=== PATIENT | female | born 1935 | race Caucasian/White ===

== ENCOUNTER 2017-04-20 15:55 | Emergency (ER) | payer MEDICARE, BC ==
[2017-04-20] MEDS ORDERED: Sodium Chloride 0.9% 10 ML Syringe FLUSH PRN (16:06)
[2017-04-20] MEDS ORDERED: Labetalol 20 MG/4 ML Syringe ONE (16:50)
[2017-04-20 16:54] LABS: CHLORIDE,CL 107 mmol/L (98-107); SODIUM,NA 142 mmol/L (136-145)
[2017-04-20] MEDS ORDERED: Labetalol 20 MG/4 ML Syringe IVPUSH ONE (17:28)
[2017-04-20] MEDS ORDERED: Aspirin 81 MG Tab.Chew PO ONE (17:28)
[2017-04-20] MEDS ORDERED: Nitroglycerin 2% Oint 1 GM UD Packet TOP ONE (17:35)
--- NOTE | 2017-04-20 17:47 | EDM.PDOC ---
ED HPI GENERAL MEDICAL PROBLEM - General Chief Complaint: Neuro Symptoms/Deficits Stated Complaint: Can't Find Words Time Seen by Provider: 04/20/17 16:04 Source of Information: Reports: Patient, Family History Limitations: Reports: No Limitations - History of Present Illness INITIAL COMMENTS - FREE TEXT/NARRATIVE: Patient brought in via her with complaints of dysphagia and dysarthria as well as some right sided weakness and left temporal headache. She was seen with similar symptoms on Saturday at [facility] in [place]. A full workup for TIA was performed, with no positive results. Discharge assessment included TIA vs Migraine. She does have a long standing history of migraine headaches. She states she has not had any in 20 years with the exception of possibly last week. No chest pain, SOB, LOC, no nausea, vomiting, fever, chills. Assisted with transfer from the wheelchair to bed. Onset: Today Location: Reports: Upper Extremity, Right, Lower Extremity, Right Associated Symptoms: Reports: Other (difficulty with words) - Related Data Allergies Allergy/AdvReac Type Severity Reaction Status Date / Time No Known Allergies Allergy Verified 04/20/17 16:30 ED ROS GENERAL - Review of Systems Review Of Systems: See Below Constitutional: Reports: No Symptoms HEENT: Reports: No Symptoms Respiratory: Reports: No Symptoms Cardiovascular: Reports: No Symptoms Endocrine: Reports: No Symptoms GI/Abdominal: Reports: No Symptoms : Reports: No Symptoms Musculoskeletal: Reports: No Symptoms Skin: Reports: No Symptoms Neurological: Reports: Headache, Trouble Speaking, Weakness Psychiatric: Reports: No Symptoms Hematologic/Lymphatic: Reports: No Symptoms Immunologic: Reports: No Symptoms ED EXAM, NEURO - Physical Exam Exam: See Below Exam Limited By: Physical Impairment (difficult speech. dysphasic, dysarthria) General Appearance: Alert, WD/WN, No Apparent Distress Eye Exam: Bilateral Eye: EOMI, PERRL Ears: Hearing Grossly Normal, Normal TMs Throat/Mouth: Normal Inspection, Normal Oropharynx Neck: Normal Inspection Respiratory/Chest: No Respiratory Distress, Lungs Clear, Normal Breath Sounds, No Accessory Muscle Use, Chest Non-Tender Cardiovascular: Normal Peripheral Pulses, Regular Rate, Rhythm GI/Abdominal: Normal Bowel Sounds, Soft, Non-Tender Neurological: Alert, Normal Mood/Affect, Normal Dorsiflexion, Normal Plantar Flexion, Oriented x 3 Extremities: Normal Inspection, Normal Capillary Refill, Other (right sided arm and leg weakness) Psychiatric: Normal Affect, Normal Mood Skin Exam: Warm, Dry, Intact Course - Orders/Labs/Meds Orders: Active Orders 24 hr Category Date Time Status EKG Documentation Completion [RC] DAILY Care 04/20/17 16:06 Active Head wo Cont [CT] Stat Exams 04/20/17 16:06 Taken Sodium Chloride 0.9% [Saline Flush] Med 04/20/17 16:06 Active 10 ml FLUSH ASDIRECTED PRN Saline Lock Insert [OM.PC] Routine Oth 04/20/17 16:06 Ordered Medication Orders Sodium Chloride (Saline Flush) 10 ml FLUSH ASDIRECTED PRN PRN Reason: Keep Vein Open Labs: Laboratory Tests 04/20/17 04/20/17 04/20/17 Range/Units 16:15 16:18 16:18 WBC 6.4 (4.0-10.0) x10^3/uL RBC 4.51 (4.00-5.50) x10^6/uL Hgb 12.1 (12.0-16.0) g/dL Hct 36.0 (33.0-47.0) % MCV 79.8 (78.0-93.0) fL MCH 26.8 (26.0-32.0) pg MCHC 33.6 (32.0-36.0) g/dL RDW Coeff of Terry 13.6 (10.0-15.0) % Plt Count 178 (130-400) x10^3/uL Neut % (Auto) 60.7 (50.0-80.0) % Lymph % (Auto) 28.0 (25.0-50.0) % Moody % (Auto) 8.1 (2.0-11.0) % Eos % (Auto) 3.0 (0.0-4.0) % Baso % (Auto) 0.2 (0.2-1.2) % PT 10.9 (10.0-12.8) SEC INR 1.0 L (2.0-3.5) APTT 23.4 L (24.0-36.0) SEC Sodium (136-145) mmol/L Potassium (3.5-5.1) mmol/L Chloride (98-107) mmol/L Carbon Dioxide (21-32) mmol/L BUN (7-18) mg/dL Creatinine (0.55-1.02) mg/dL Est Cr Clr Drug Dosing Estimated GFR (MDRD) Glucose (74-106) mg/dL POC Glucose 88 (74-106) mg/dL Calcium (8.5-10.1) mg/dL Corrected Calcium (8.5-10.1) mg/dL Total Bilirubin (0.2-1.0) mg/dL AST (15-37) U/L ALT (14-59) U/L Alkaline Phosphatase (46-116) U/L Creatine Kinase (26-192) U/L Creatine Kinase Index (0.0-4.0) % CK-MB (CK-2) (0.0-3.6) ng/mL POC Troponin I (0.00-0.08) ng/mL C-Reactive Protein (<=0.9) mg/dL Total Protein (6.4-8.2) g/dL Albumin (3.4-5.0) g/dL Globulin Albumin/Globulin Ratio 04/20/17 04/20/17 Range/Units 16:18 16:22 WBC (4.0-10.0) x10^3/uL RBC (4.00-5.50) x10^6/uL Hgb (12.0-16.0) g/dL Hct (33.0-47.0) % MCV (78.0-93.0) fL MCH (26.0-32.0) pg MCHC (32.0-36.0) g/dL RDW Coeff of Terry (10.0-15.0) % Plt Count (130-400) x10^3/uL Neut % (Auto) (50.0-80.0) % Lymph % (Auto) (25.0-50.0) % Moody % (Auto) (2.0-11.0) % Eos % (Auto) (0.0-4.0) % Baso % (Auto) (0.2-1.2) % PT (10.0-12.8) SEC INR (2.0-3.5) APTT (24.0-36.0) SEC Sodium 142 (136-145) mmol/L Potassium 4.2 (3.5-5.1) mmol/L Chloride 107 (98-107) mmol/L Carbon Dioxide 27 (21-32) mmol/L BUN 17 (7-18) mg/dL Creatinine 1.0 (0.55-1.02) mg/dL Est Cr Clr Drug Dosing TNP Estimated GFR (MDRD) 53 Glucose 96 (74-106) mg/dL POC Glucose (74-106) mg/dL Calcium 8.8 (8.5-10.1) mg/dL Corrected Calcium 9.12 (8.5-10.1) mg/dL Total Bilirubin 0.4 (0.2-1.0) mg/dL AST 23 (15-37) U/L ALT 26 (14-59) U/L Alkaline Phosphatase 92 (46-116) U/L Creatine Kinase 151 (26-192) U/L Creatine Kinase Index 1.3 (0.0-4.0) % CK-MB (CK-2) 2.0 (0.0-3.6) ng/mL POC Troponin I 0.00 (0.00-0.08) ng/mL C-Reactive Protein < 0.2 (<=0.9) mg/dL Total Protein 7.2 (6.4-8.2) g/dL Albumin 3.6 (3.4-5.0) g/dL Globulin 3.6 Albumin/Globulin Ratio 1.00 Meds: Medications Generic Name Dose Route Start Last Admin Trade Name Freq PRN Reason Stop Dose Admin Sodium Chloride 10 ml 04/20/17 16:06 Saline Flush FLUSH ASDIRECTED PRN Keep Vein Open Discontinued Medications Generic Name Dose Route Start Last Admin Trade Name Freq PRN Reason Stop Dose Admin Aspirin 324 mg 04/20/17 17:28 Aspirin PO 04/20/17 17:29 ONETIME ONE Labetalol HCl Confirm 04/20/17 16:50 Normodyne Administered 04/20/17 16:51 Dose 20 mg .ROUTE .STK-MED ONE Labetalol HCl 10 mg 04/20/17 17:28 Normodyne IVPUSH 04/20/17 17:29 NOW ONE Protocol Nitroglycerin 1 gm 04/20/17 17:35 Nitro-Bid 2% TOP 04/20/17 17:36 ONETIME ONE - Radiology Interpretation Free Text/Narrative:: Negative for ischemic or hemorrhagic stroke. - Re-Assessments/Exams Free Text/Narrative Re-Assessment/Exam: 04/20/17 17:[address] Tripp from [facility]. She was seen by them last week and had a work up for stroke/tia. MRI, CT, Echo all negative for causative factors of stroke. She does have a history of migraine headache. He did suggest stopping aspirin and starting her on 75 mg of plavix, as well as following up with a headache specialist in [place]. Symptoms are resolved and she is wanting to go home. Due to today's results he did feel she is ok to go home due to her prior workup. 04/20/17 19:38 Departure - Departure Time of Disposition: 18:36 Disposition: Home, Self-Care 01 Condition: Good Clinical Impression: Migraine Qualifiers: Migraine type: unspecified Status migrainosus presence: without status migrainosus Intractability: not intractable Qualified Code(s): G43.909 - Migraine, unspecified, not intractable, without status migrainosus TIA (transient ischemic attack) Qualifiers: Transient cerebral ischemia type: unspecified Qualified Code(s): G45.9 - Transient cerebral ischemic attack, unspecified - Discharge Information Instructions: Transient Ischemic Attack, [id number], Migraine Headache, Easy- to-Read Referrals: PCP,Not In Area [Primary Care Provider] - Forms: ED Department Discharge Additional Instructions: You should follow up with your primary provider as needed. Your blood pressure has been elevated during both of these events. Neurology's Dr. Tripp was consulted and he recommends stopping your Aspirin and starting on Plavix instead at 75 mg daily. He also recommends follow up with a headache specialist that they have in [place]. Make sure you stay hydrated. You should try to identify and avoid possible migraine triggers. You should return to the emergency room if you have any of the symptoms you have been having. Please call with any questions or concerns in the meantime. - Problem List & Annotations (1) Migraine SNOMED Code(s): 53638638 Code(s): G43.909 - MIGRAINE, UNSP, NOT INTRACTABLE, WITHOUT STATUS MIGRAINOSUS Status: Acute Priority: Low Current Visit: Yes Qualifiers: Migraine type: unspecified Status migrainosus presence: without status migrainosus Intractability: not intractable Qualified Code(s): G43.909 - Migraine, unspecified, not intractable, without status migrainosus (2) TIA (transient ischemic attack) SNOMED Code(s): 423045857, 567787747 Code(s): G45.9 - TRANSIENT CEREBRAL ISCHEMIC ATTACK, UNSPECIFIED Status: Acute Priority: Low Current Visit: Yes Qualifiers: Transient cerebral ischemia type: unspecified Qualified Code(s): G45.9 - Transient cerebral ischemic attack, unspecified - Problem List Review Problem List Initiated/Reviewed/Updated: Yes - My Orders Last 24 Hours: My Active Orders 04/20/17 16:06 EKG Documentation Completion [RC] DAILY Head wo Cont [CT] Stat Sodium Chloride 0.9% [Saline Flush] 10 ml FLUSH ASDIRECTED PRN Saline Lock Insert [OM.PC] Routine - Assessment/Plan Last 24 Hours: My Active Orders 04/20/17 16:06 EKG Documentation Completion [RC] DAILY Head wo Cont [CT] Stat Sodium Chloride 0.9% [Saline Flush] 10 ml FLUSH ASDIRECTED PRN Saline Lock Insert [OM.PC] Routine Assessment:: TIA vs. migraine Plan: You should follow up with your primary provider as needed. Your blood pressure has been elevated during both of these events. Neurology's Dr. Tripp was consulted and he recommends stopping your Aspirin and starting on Plavix instead at 75 mg daily. He also recommends follow up with a headache specialist that they have in [place]. Make sure you stay hydrated. You should try to identify and avoid possible migraine triggers. You should return to the emergency room if you have any of the symptoms you have been having. Please call with any questions or concerns in the meantime.
== END 2017-04-20 18:36 | disposition home or self-care (01) ==
LOC: VM.ED 15:55
DX: G45.9 Transient cerebral ischemic attack, unspecified (principal); G43.909 Migraine, unspecified, not intractable, without status migrainosus
CPT/HCPCS: 36415; 70450; 80053; 82550; 82553; 82962; 84484; 85025; 85610; 85730; 86140; 93005; 96374; 99284-GF; 99285